=== PATIENT | female | born 1925 | race Caucasian/White ===

== ENCOUNTER → 2016-07-11 | Outpatient (CLI) | payer OTHER, BC ==
--- NOTE | 2016-07-11 09:40 | US ---
Ultrasound of the Abdomen Limited History: Abnormal liver function tests. R74.8. Comparison: None. Findings: Biliary system: Gallbladder is surgically absent. Common bile duct is 9 mm in diameter which is yonathan l. Liver: Homogeneous in echogenicity without definite focal solid lesions and measures 17 cm in length. Mildly prominent intrahepatic bile ducts. There are multiple simple cysts in the liver without defin ite solid lesions. The largest cyst in the right lobe measures 7.8 x 5.6 x 6.1 cm and 6.8 x 6.9 x 6.6 cm. Renal: Right kidney measures 9 x 4 x 5 cm without hydronephrosis. Pancreas: Homogeneous without peripancreatic fluid. Aorta: Visualized upper abdominal aorta demonstrates no aneurysm. Impression: 1. Prior cholecystectomy with mildly prominent intrahepatic bile ducts. Common bile duct 9 mm which i s normal for the patient's age. 3. Mild hepatomegaly and hepatic steatosis with several hepatic cysts measuring up to 7.8 x 6.1 x 5.6 cm. 4. No definite solid hepatic lesions. 5. Consider CT abdomen or MRCP abdomen with contrast enhancement for further evaluation of the hepati c parenchyma and intrahepatic ducts if clinically indicated.
== END ==
LOC: BMCIMAGING 08:26
PROVIDERS: ATTEND Internal Medicine
DX: R74.8 Abnormal levels of other serum enzymes (principal); R16.0 Hepatomegaly, not elsewhere classified

== ENCOUNTER → 2016-11-11 | Outpatient (CLI) | payer OTHER, BC ==
[~2016-11-11] MED LIST: IOPAMIDOL (ISOVUE 370) 100 ML BTL IV ONE
[2016-11-11 10:37] LABS: CREATININE 0.7 mg/dL (0.6-1.0); GLOMERULAR FILTRATION RATE > 60
== END ==
LOC: FIMAGING 09:31
PROVIDERS: ATTEND Internal Medicine
DX: K80.21 Calculus of gallbladder without cholecystitis with obstruction (principal); K76.89 Other specified diseases of liver; N28.1 Cyst of kidney, acquired
CPT/HCPCS: 74170; Q9967